=== PATIENT | female | born 1975 | race Two or more races ===

== ENCOUNTER 2019-02-08 12:27 | Outpatient (CLI) | payer OTHER | END 2019-02-08 12:28 | disposition home or self-care (01) | LOC: RAD 12:27 | DX: R05 Cough (principal) ==

== ENCOUNTER 2024-07-26 15:23 | Inpatient (IN) | payer OTHER ==
[~2024-07-26] VITALS: Ht 162.6 cm; Wt 68.0 kg
[2024-07-26] MEDS ORDERED: FAMOTIDINE/PF 20 MG in 0.9 % SODIUM CHLORIDE 8 ML IV PUSH STA (16:16)
[2024-07-26] MEDS ORDERED: PROAIR RESPICL90 MCG (16:26)
[2024-07-26] MEDS ORDERED: KETOROLAC TROMETHAMINE 30 MG VIAL IV ONE (16:30)
[2024-07-26] MEDS ORDERED: 0.9 % SODIUM CHLORIDE 1,000 ML IV SCH ×2 (16:30→23:15)
[2024-07-26] MEDS ORDERED: ONDANSETRON HCL 2 MG/ML VIAL IV ONE (16:30)
[2024-07-26] MEDS ORDERED: KETOROLAC TROMETHAMINE 30 MG VIAL ONE (16:32)
[2024-07-26] MEDS ORDERED: FAMOTIDINE/PF 20 MG/2 ML VIAL ONE (16:32)
[2024-07-26] MEDS ORDERED: ONDANSETRON HCL 2 MG/ML VIAL ONE (16:32)
[2024-07-26 17:47] LABS: BASO % 0.1 % (0.1-1.2); HEMATOCRIT 38.2 % (34.1-44.9); HEMOGLOBIN 13.5 g/dL (11.2-15.7); LYMPH # 0.45 (1.18-3.74); LYMPH % 3.3 % (19.3-53.1); MEAN CORPUSCULAR HEMOGLOBIN 29.4 pg (25.6-32.2); MONO # 0.56 (0.24-0.82); MONO % 4.1 % (4.7-12.5); NEUT # 12.62 (1.56-6.13); NEUT % 92.3 % (34.0-71.1); PLATELET COUNT 161 K/uL (163-369); RED BLOOD COUNT 4.59 M/uL (3.93-5.22); RED CELL DISTRIBUTION WIDTH 12.7 % (11.6-14.4)
[2024-07-26 18:12] LABS: PH,URINE 6.5 (5.0-8.0); URINE APPEARANCE Clear; URINE BILIRRUBIN Negative (NEGATIVE); URINE BLOOD Negative; URINE COLOR Dark Yellow; URINE GLUCOSE Negative (NEGATIVE); URINE KETONE Trace (NEGATIVE); URINE LEUKOCYTE Negative; URINE NITRATE Negative; URINE PROTEIN Trace (NEGATIVE)
[2024-07-26 18:15] LABS: ALBUMIN 3.7 gm/dL (3.4-5.0); BILIRUBIN TOTAL 0.95 mg/dL (0.3-1.2); BILIRUBIN,CONJUGATED 0.28 mg/dL (0.0-0.2); BILIRUBIN,UNCONJUGATED 0.67 mg/dL (0.0-0.6); CALCIUM 8.3 mg/dL (8.5-10.1); CREATININE SERUM 0.72 mg/dL (0.55-1.02); GFR 86.45; GLOBULINA 3.9 G/DL (2.4-3.5); POTASSIUM 3.87 mEq/L (3.5-5.1); TOTAL PROTEIN 7.6 gm/dL (6.4-8.2)
[2024-07-26 18:15] LABS: URINE BACTERIA 236.2 uL (0.0-1933); URINE EPITHELIAL CELLS 7.4 uL (0.0-38.8); URINE RBC 10.3 uL (0.0-20.8); URINE WBC 14.3 uL (0.0-23.2)
[2024-07-26 18:27] LABS: URINE CAST 0.14 uL (0.0-1.40)
[2024-07-26] MEDS ORDERED: PIPERACILLIN/TAZOBACTAM SODIUM 3.375 GM VIAL IV ONE ×2 (20:46→21:00)
[2024-07-26] MEDS ORDERED: ONDANSETRON HCL 4 MG in 0.9 % SODIUM CHLORIDE 50 ML IV PRN (23:15)
[2024-07-26] MEDS ORDERED: ACETAMINOPHEN 325 MG TABLET PO PRN (23:15)
[2024-07-26] MEDS ORDERED: MORPHINE SULFATE 4 MG/ML CARTRIDGE IV PRN (23:15)
[2024-07-26] MEDS ORDERED: KETOROLAC TROMETHAMINE 30 MG VIAL IU PRN (23:15)
[2024-07-27 02:55] LABS: COVID-19 AG NEGATIVE (NEGATIVE)
[2024-07-27 03:05] VITALS: BP 125/80; O2SAT 98
[2024-07-27 04:22] LABS: INR 1.26; PARTIAL THROMBOPLASTIN TIME 28.4 SECONDS (22.0-34.0); PROTHROMBIN TIME 13.5 SECONDS (9.0-11.5)
[2024-07-27] MEDS ORDERED: PIPERACILLIN/TAZOBACTAM SODIUM 3.375 GM in 0.9 % SODIUM CHLORIDE 100 ML IV SCH (06:00)
[2024-07-27 07:40] VITALS: BP 113/75; O2SAT 97
[2024-07-27] MEDS ORDERED: ACETAMINOPHEN 500 MG GEL..CAP PO PRN (08:00)
[2024-07-27] MEDS ORDERED: KETOROLAC TROMETHAMINE 30 MG VIAL IV PRN (08:00)
[2024-07-27] MEDS ORDERED: PANTOPRAZOLE SODIUM 40 MG/VIAL VIAL IV SCH (09:00)
[2024-07-27 16:00] VITALS: BP 120/76; O2SAT 95
[2024-07-28 01:24] VITALS: BP 133/82; O2SAT 100
[2024-07-28 08:19] VITALS: BP 150/82; O2SAT 97
[2024-07-28 16:00] VITALS: BP 149/87; O2SAT 95
[2024-07-28] MEDS ORDERED: ALBUTEROL SULFATE 3 ML/2.5 MG AMPUL.NEB IH SCH (21:54)
[2024-07-28 23:43] VITALS: BP 137/76; O2SAT 100
[2024-07-29 08:00] VITALS: BP 152/98; O2SAT 96
[2024-07-29 08:40] LABS: BASO % 0.3 % (0.1-1.2); EOS # 0.04 (0.04-0.54); EOS % 0.4 % (0.7-7.0); HEMATOCRIT 34.9 % (34.1-44.9); HEMOGLOBIN 12.1 g/dL (11.2-15.7); LYMPH % 3.1 % (19.3-53.1); MEAN CORPUSCULAR HEMOGLOBIN 29.4 pg (25.6-32.2); MONO # 0.47 (0.24-0.82); MONO % 4.8 % (4.7-12.5); NEUT # 8.89 (1.56-6.13); NEUT % 90.4 % (34.0-71.1); PLATELET COUNT 174 K/uL (163-369); RED BLOOD COUNT 4.12 M/uL (3.93-5.22); RED CELL DISTRIBUTION WIDTH 13.1 % (11.6-14.4)
[2024-07-29 10:09] LABS: CREATININE SERUM 0.35 mg/dL (0.55-1.02); GFR 198.75; POTASSIUM 3.33 mEq/L (3.5-5.1)
[2024-07-29 16:26] VITALS: BP 150/85; O2SAT 99
[2024-07-29] MEDS ORDERED: POTASSIUM CHLORIDE 20MEQ/100ML H2O PB IV NR (17:00)
[2024-07-29] MEDS ORDERED: ACETAMINOPHEN 500 MG GEL..CAP PO SCH (17:00)
[2024-07-29] MEDS ORDERED: TRAMADOL HCL 50 MG TABLET PO SCH (21:00)
[2024-07-30 03:04] VITALS: BP 153/92; O2SAT 94
[2024-07-30 07:41] LABS: CALCIUM 8.4 mg/dL (8.5-10.1); CREATININE SERUM 0.43 mg/dL (0.55-1.02); GFR 156.72; POTASSIUM 3.2 mEq/L (3.5-5.1)
[2024-07-30 08:00] VITALS: BP 155/98; O2SAT 99
[2024-07-30] MEDS ORDERED: ENOXAPARIN SODIUM 40 MG/0.4 ML SYRINGE SUBCUTANEO SCH (09:00)
== END 2024-07-30 15:29 | disposition home or self-care (01) | DRG 391 ==
LOC: ER 15:23 → SURG 23:09
PROVIDERS: General Practice; ADMIT Internal Medicine; ATTEND Internal Medicine
PROC: BW21YZZ Computerized Tomography (CT Scan) of Abdomen and Pelvis using Other Contrast (ICD-10-PCS; principal; 2024-07-26)
PROC: B24BZZZ Ultrasonography of Heart with Aorta (ICD-10-PCS; 2024-07-28)
DX: K57.20 Diverticulitis of large intestine with perforation and abscess without bleeding (principal); A41.9 Sepsis, unspecified organism; K90.49 Malabsorption due to intolerance, not elsewhere classified; I34.0 Nonrheumatic mitral (valve) insufficiency